=== PATIENT | female | born 1985 | race Caucasian/White ===

== ENCOUNTER 2017-09-15 16:08 | Outpatient (CLI) | payer MEDICAID ==
[~2017-09-15] VITALS: Ht 149.9 cm; Wt 51.7 kg
[2017-09-15 16:25] VITALS: BP 92/55; PULSE 72; RESP 19; Ht 149.9 cm; Wt 51.7 kg
[2017-09-15] MEDS ORDERED: PREN-93 PO (16:26)
[2017-09-15 16:33] LABS: URINE BLOOD (Dip) POC 3+ (NEGATIVE)
--- NOTE | 2017-09-15 18:09 | RADRPT ---
PROCEDURE: OB ultrasound for biophysical profile CLINICAL INDICATION: . TECHNIQUE: Multiple sonographic images of the pelvis were obtained. Transabdominal view of the gr avid uterus are available for review. The images were reviewed on a PACS workstation. COMPARISON: 06/26/2017 FINDINGS: breathing movement = 2/2 tone = 2/2 motion = 2/2 FAM = 2/2 FAM = 15.3 cm Single live intrauterine with cardiac activity. Heart rate equals 139 bpm. IMPRESSION: 1. Single viable intrauterine gestation. 2. Biophysical profile = 8/8. 3. FAM = 15.3 cm. RPTAT: QQ .Isaías Brown MD, Date Time Electronically viewed and signed by .Isaías Brown MD, on 09/15/2017 18:09 .Avelina/
--- NOTE | 2017-09-15 22:54 | RADRPT ---
PROCEDURE: Limited OB ultrasound CLINICAL INDICATION: Vaginal bleeding. TECHNIQUE: Limited sonographic evaluation of the gravid uterus was performed to assess the placent a. COMPARISON: 09/15/2017 FINDINGS: Single live intrauterine with a heart rate 131 beats per minute is present. Fetus is in b reech presentation. The placenta is anterior. anterior. There is no evidence for placental abruptio n or placenta previa. IMPRESSION: Anterior placenta. No evidence for placental previa or abruption. RPTAT: HMVK .Charles Lopez MD, Date Time Electronically viewed and signed by .Charles Lopez MD, on 09/15/2017 22:54 .K/
--- NOTE | 2017-09-16 01:26 | PN ---
Triage Information Date/Time Reason for visit: Vag spotting / bleeding Weeks of Gestation 32 weeks /Para Diabetes: none Hypertention: none Objective Vital Signs Date Time Temp Pulse Resp B/P Pulse Ox O2 Delivery O2 Flow Rate FiO2 09/15/17 16:25 98.5 72 19 92/55 99 Room Air Heart Rate: 130's Heart Rate Comments Category I Contractions: None Exam Cervix closed Results/Medications Results 24 hrs Laboratory Tests Test 09/15/17 16:45 Bedside Urine pH (LAB) 7.0 Bedside Urine Protein (LAB) 1+ H Bedside Urine Glucose (UA) Negative Bedside Urine Ketones (LAB) Negative Bedside Urine Blood 3+ H Bedside Urine Nitrite (LAB) Negative Bedside Urine Leukocyte Esterase (L Negative Imaging Results Placenta normal Cervical length normal Disposition: Discharge Assessment/Plan No sign of labor No active bleeding D/C home. KO AGUILAR MD Sep 16, 2017 01:26
--- NOTE | 2017-09-16 03:41 | TRIAGE ---
OB Triage Datetime Report Generated by CPN: 09/16/2017 03:41 Datetime: 09/16/2017 01:16 Stage of : OB Triage Datetime: 09/16/2017 01:15 Stage of : OB Triage Maternal Assessment Level of Consciousness: Fully Conscious Labor Evaluation Frequency: OCCASIONALLY Monitor Mode: External Duration (sec)2399: 60 Quality: Mild Resting Tone Stafford: Relaxed Heart Rate FHR Baseline Rate: 135 Monitor Mode: External US Variability: Moderate 6-25 bpm Accelerations: 15X15 Decelerations: None Comments: UNABLE ASSIGN CATEGORY DUE TO FHR MULTIPLE SKPING TRACING Pain Presence: None/Denies Vaginal Exam Membrane Status: Intact Datetime: 09/16/2017 00:20 Stage of : OB Triage Maternal Assessment Level of Consciousness: Fully Conscious Labor Evaluation Frequency: OCCASIONALLY Monitor Mode: External Duration (sec)2399: 60 Quality: Mild Resting Tone Stafford: Relaxed Heart Rate FHR Baseline Rate: 135 Monitor Mode: External US Variability: Moderate 6-25 bpm Accelerations: 15X15 Decelerations: None Category: UNABLE ASSIGN CATEGORY DUE TO PT LATERAL POSITION AND EFM UNABLE PICKING UP FHR. Pain Presence: None/Denies Vaginal Exam Membrane Status: Intact Datetime: 09/15/2017 23:20 Stage of : OB Triage Maternal Assessment Level of Consciousness: Fully Conscious Labor Evaluation Frequency: OCCASIONALLY Monitor Mode: External Duration (sec)2399: 60 Quality: Mild Resting Tone Stafford: Relaxed Heart Rate FHR Baseline Rate: 135 Monitor Mode: External US Variability: Moderate 6-25 bpm Accelerations: 15X15 Decelerations: None Category: Category I Pain Presence: None/Denies Vaginal Exam Membrane Status: Intact Datetime: 09/15/2017 23:17 Stage of : OB Triage Datetime: 09/15/2017 22:20 Stage of : OB Triage Maternal Assessment Level of Consciousness: Fully Conscious Labor Evaluation Frequency: NONE Monitor Mode: External Resting Tone Stafford: Relaxed Heart Rate FHR Baseline Rate: 135 Monitor Mode: External US Variability: Moderate 6-25 bpm Accelerations: 15X15 Decelerations: None Pain Presence: None/Denies Vaginal Exam Membrane Status: Intact Datetime: 09/15/2017 22:05 Stage of : OB Triage Datetime: 09/15/2017 21:20 Stage of : OB Triage Maternal Assessment Level of Consciousness: Fully Conscious Labor Evaluation Frequency: NONE Monitor Mode: External Resting Tone Stafford: Relaxed Heart Rate FHR Baseline Rate: 135 Monitor Mode: External US Variability: Moderate 6-25 bpm Accelerations: 15X15 Decelerations: None Pain Presence: None/Denies Vaginal Exam Membrane Status: Intact Datetime: 09/15/2017 21:02 Stage of : OB Triage Datetime: 09/15/2017 20:20 Stage of : OB Triage Maternal Assessment Level of Consciousness: Fully Conscious Labor Evaluation Frequency: NONE Monitor Mode: External Resting Tone Stafford: Relaxed Heart Rate FHR Baseline Rate: 135 Monitor Mode: External US Variability: Moderate 6-25 bpm Accelerations: 15X15 Decelerations: None Category: Category I Pain Presence: None/Denies Vaginal Exam Membrane Status: Intact Datetime: 09/15/2017 19:26 Stage of : OB Triage Maternal Assessment Level of Consciousness: Fully Conscious DTR's/Clonus: DTRs 1+ Headache: Denies Breath Sounds, Left: Clear and Equal Breath Sounds, Right: Clear and Equal Nausea/Vomiting: Denies RUQ Epigastric Pain: Denies Labor Evaluation Frequency: NONE Monitor Mode: External Resting Tone Stafford: Relaxed Heart Rate FHR Baseline Rate: 140 Monitor Mode: External US Variability: Moderate 6-25 bpm Accelerations: 15X15 Decelerations: None Category: Category I Pain Presence: None/Denies Vaginal Exam Membrane Status: Intact Datetime: 09/15/2017 18:56 Stage of : OB Triage Maternal Assessment Level of Consciousness: Fully Conscious DTR's/Clonus: DTRs 1+ Headache: Denies Breath Sounds, Left: Clear and Equal Breath Sounds, Right: Clear and Equal Nausea/Vomiting: Denies RUQ Epigastric Pain: Denies Labor Evaluation Frequency: NONE Monitor Mode: External Resting Tone Stafford: Relaxed Heart Rate FHR Baseline Rate: 145 Monitor Mode: External US Variability: Moderate 6-25 bpm Accelerations: 15X15 Decelerations: None Category: Category I Vaginal Exam Membrane Status: Intact Datetime: 09/15/2017 18:15 Maternal Assessment Level of Consciousness: Fully Conscious DTR's/Clonus: DTRs 1+ Headache: Denies Blurred Vision: No Respiratory Effort: Unlabored Breath Sounds, Left: Clear and Equal Breath Sounds, Right: Clear and Equal Nausea/Vomiting: Denies RUQ Epigastric Pain: Denies Facial Edema: None Labor Evaluation Frequency: NONE Monitor Mode: External Resting Tone Stafford: Relaxed Heart Rate FHR Baseline Rate: 145 Monitor Mode: External US Variability: Moderate 6-25 bpm Accelerations: 15X15 Decelerations: None Category: Category I Vaginal Exam Membrane Status: Intact Datetime: 09/15/2017 17:04 Stage of : OB Triage Maternal Assessment Level of Consciousness: Fully Conscious DTR's/Clonus: DTRs 1+ Headache: Denies Breath Sounds, Left: Clear and Equal Breath Sounds, Right: Clear and Equal Nausea/Vomiting: Denies RUQ Epigastric Pain: Denies Labor Evaluation Frequency: NONE Monitor Mode: External Resting Tone Stafford: Relaxed Heart Rate FHR Baseline Rate: 140 Monitor Mode: External US Variability: Moderate 6-25 bpm Accelerations: 15X15 Decelerations: None Category: Category I Pain Assessment Pain Scale: 0 Pain Presence: None/Denies Pain Type: N/A Pain Goal: 3 Vaginal Exam Membrane Status: Intact Datetime: 09/15/2017 16:33 Maternal Assessment Level of Consciousness: Fully Conscious DTR's/Clonus: DTRs 1+ Headache: Denies Blurred Vision: No Respiratory Effort: Unlabored Breath Sounds, Left: Clear and Equal Breath Sounds, Right: Clear and Equal Nausea/Vomiting: Denies RUQ Epigastric Pain: Denies Facial Edema: None Labor Evaluation Frequency: NONE Monitor Mode: External Resting Tone Stafford: Relaxed Heart Rate FHR Baseline Rate: 135 Monitor Mode: External US Variability: Moderate 6-25 bpm Accelerations: 10X10 Decelerations: None Category: Category I Pain Assessment Pain Scale: 0 Pain Presence: None/Denies Pain Type: N/A Pain Goal: 3 Vaginal Exam Membrane Status: Intact Datetime: 09/15/2017 16:22 EGA: 32.5 Datetime: 09/15/2017 16:15 Assessment Type: Triage Maternal Assessment Level of Consciousness: Fully Conscious DTR's/Clonus: DTRs 2+; No Clonus Headache: Denies Blurred Vision: No Respiratory Effort: Unlabored; Regular Rhythm; Equal Expansion Breath Sounds, Left: Clear and Equal Breath Sounds, Right: Clear and Equal Nausea/Vomiting: Denies RUQ Epigastric Pain: Denies Lower Extremities Edema: None Degree: None Upper Extremities Edema: None Degree: None Facial Edema: None Fall Risk Assessment History of Falling: (0) No Secondary Diagnosis: (0) No Ambulatory Aid: (0) Bedrest/Nurse Assist IV Therapy: (0) No Gait: (0) Normal/Bedrest/Immobile Mental Status: (0) Oriented to Own Ability Fall Score: 0 Fall Risk Score Definition: No Risk: No action required Datetime: 09/15/2017 16:01 Time of Arrival: 09/15/2017 16:01 Arrived By: Wheelchair Arrived From: Home Chief Complaint: PT CAME IN C/O BLEEDING SINCE YESTERDAY AFTERNOON. STATED THAT IT WAS BRIGHT RED YESTERDAY BUT TODAY IS A BIT TRAFFIC COURT MAGISTRATE LIKE A PINK COLOR WITH MUCOSE. DENIES ANY UC'S AT THIS TIME AND STATES + MOVEMENT Movement: Present Contractions: Denies/Absent Rupture of Membranes: Denies Vaginal Discharge: Denies Recent Sexual Intercouse: Denies Abdominal Trauma: Not Applicable Patient Complaints: Other Additional Patient Complaints: NONE Initial Plan: NST, PLACENTA LOCATION, CERVICAL LENGHT
== END 2017-09-16 01:35 | disposition home or self-care (01) ==
LOC: OBT 16:08 → L-D 16:08 → OBT 09-16 01:35
PROVIDERS: ATTEND Obstetrics & Gynecology
DX: O26.853 Spotting complicating pregnancy, third trimester (principal); Z3A.32 32 weeks gestation of pregnancy
CPT/HCPCS: 76815; 76817; 76818; 81003; 86850; 86900; 86901; Z7500; G0463

== ENCOUNTER 2017-10-30 06:52 | Inpatient (IN) | payer MEDICAID ==
[~2017-10-30] VITALS: Ht 147.3 cm; Wt 60.2 kg
[~2017-10-30 06:52] MED LIST: PREN-93 PO
[2017-10-30] MEDS ORDERED: LACTATED RINGER'S 1,000 ML IV SCH (07:22)
[2017-10-30] MEDS ORDERED: LIDOCAINE 1% (MPF) 30 ML INJ ONE (07:22)
[2017-10-30] MEDS ORDERED: OXYTOCIN 30 UNITS/LR 500 ML IV ONE (07:22)
[2017-10-30 07:25] VITALS: Ht 147.3 cm; Wt 60.2 kg
[2017-10-30 07:26] VITALS: BP 112/70; PULSE 62; RESP 16
--- NOTE | 2017-10-30 07:29 | TRIAGE ---
OB Triage Datetime Report Generated by CPN: 10/30/2017 07:28 Datetime: 10/30/2017 07:27 Assessment Type: Admission Assessment Time of Arrival: 10/30/2017 06:48 Arrived By: Ambulatory Arrived From: Home Chief Complaint: PT HERE C/O UC'S Movement: Present Contractions: Regular Time Contractions Began: 10/30/2017 02:00 Rupture of Membranes: Denies Vaginal Bleeding: None Vaginal Bleeding: None Vaginal Discharge: Denies Recent Sexual Intercouse: Denies Abdominal Trauma: Not Applicable Patient Complaints: Contractions; Cramping; Back Pain Time Provider Notified: 10/30/2017 07:20 Provider Notified[facility] Initial Plan: EFM/SVE Maternal Assessment Level of Consciousness: Fully Conscious DTR's/Clonus: DTRs 2+; No Clonus Headache: Denies Blurred Vision: No Respiratory Effort: Unlabored; Regular Rhythm; Equal Expansion Breath Sounds, Left: Clear and Equal Breath Sounds, Right: Clear and Equal Nausea/Vomiting: Denies RUQ Epigastric Pain: Denies Facial Edema: None Fall Risk Assessment History of Falling: (0) No Secondary Diagnosis: (0) No Ambulatory Aid: (0) Bedrest/Nurse Assist IV Therapy: (0) No Gait: (0) Normal/Bedrest/Immobile Mental Status: (0) Oriented to Own Ability Pain Assessment Pain Scale: 8 Pain Presence: Intermittent Pain Type: Contraction Pain Location: Abdomen Datetime: 10/30/2017 07:14 Vaginal Exam Dilatation (cms): 8.0 Effacement (%): 90 Station: -2 Exam By: [facility] Membrane Status: Bulging Vaginal Bleeding: Normal Show Cervix, Consistency: Soft Cervix, Position: Midposition Datetime: 10/30/2017 07:04 Labor Evaluation Monitor Mode: External Heart Rate Monitor Mode: External US Datetime: 09/15/2017 16:22 EGA: 32.5 Datetime: 09/15/2017 16:15 Fall Score: 0 Fall Risk Score Definition: No Risk: No action required Datetime: 09/15/2017 16:01 Time Provider Notified: 09/16/2017 16:24 Provider Notified: DR RABAGO
[2017-10-30] MEDS ORDERED: BUTORPHANOL 2 MG INJ IV PRN (07:30)
[2017-10-30] MEDS ORDERED: MISOPROSTOL 200 MCG TAB PR PRN ×2 (07:30→08:00)
[2017-10-30] MEDS ORDERED: LIDOCAINE 1% (MPF) 30 ML INJ INJ PRN (07:30)
[2017-10-30] MEDS ORDERED: OXYTOCIN 30 UNITS/LR 500 ML IV SCH ×2 (07:30)
[2017-10-30] MEDS ORDERED: IBUPROFEN 600 MG TAB PO PRN (07:30)
[2017-10-30] MEDS ORDERED: CARBOPROST 250 MCG INJ IM PRN ×2 (07:30→08:00)
[2017-10-30] MEDS ORDERED: AMPICILLIN 2 GM/NS (PMX) 100 ML IV ONE (07:30)
[2017-10-30] MEDS ORDERED: OXYTOCIN 30 UNITS/LR 500 ML IV PRN ×2 (07:30→08:00)
[2017-10-30] MEDS ORDERED: METHYLERGONOVINE 0.2 MG INJ IM PRN ×2 (07:30→08:00)
[2017-10-30 07:50] LABS: BASOPHILS % 0.4 % (0.0-2.0); EOSINOPHILS % 0.4 % (0.0-7.0); HEMATOCRIT 43.1 % (37.0-47.0); HEMOGLOBIN 15.4 g/dl (12.0-16.0); LYMPHOCYTES # 1.4 10^3/ul (0.8-2.9); MEAN CORPUSCULAR HEMOGLOBIN 33.3 pg (29.0-33.0); MEAN CORPUSCULAR HGB CONC 35.7 g/dl (32.0-37.0); MEAN CORPUSCULAR VOLUME 93.1 fl (82.0-101.0); MEAN PLATELET VOLUME 10.3 fl (7.4-10.4); MONOCYTE # 0.4 10^3/ul (0.3-0.9); MONOCYTES % 4.8 % (0.0-11.0); NEUTROPHIL # 6.6 10^3/ul (1.6-7.5); NEUTROPHILS % 77.7 % (39.0-77.0); PLATELET COUNT 241 10^3/UL (140-415); RED BLOOD COUNT 4.63 10^6/ul (4.20-5.40); RED CELL DISTRIBUTION WIDTH 12.8 % (11.5-14.5); WHITE BLOOD COUNT 8.5 10^3/ul (4.8-10.8)
--- NOTE | 2017-10-30 07:52 | HP ---
Date/Time of Note Date/Time of Note DATE: 10/30/17 TIME: 07:49 OB - History Hx of Present Free Text/Dictation Patient is a 32-year-old with IUP at 39 weeks and 1 day with care at [facility] presented in active labor. She was 89 cm with a bulging bag and 0 station. Her records were not available at the time of admission. She was admitted for delivery. Shortly after admission she had spontaneous rupture of membranes and clear fluid noted. She had urged the patient was transferred to labor and delivery : 5 Para: 4 Spontaneous : 0 Therapeutic : 0 Care: Other ( records not available) Other Concerns: Patient denies any constipation during her course. Records were not available at the time of admission Past Family/Social History * Past Medical, Surgical, Family and Obstetric Histories reviewed from chart. OB Admission Exam Vital Signs Vital Signs Vital Signs Date Time Temp Pulse Resp B/P Pulse Ox O2 Delivery O2 Flow Rate FiO2 10/30/17 07:26 97.8 62 16 112/70 Room Air Physical Exam HEENT: WNL Lungs: Clear Extremities: Normal Reflexes: Normal Cervical Dilatation: 9cm Effacement: 100% Station: -1 Amniotic Fluid: Clear Heart Rate: 130's Accelerations: Accelerations Present Decelerations: No Decelerations Contractions on Admission: < 5 Minutes Apart Intensity: Moderate OB Assessment/Plan Reason for admission: active labor Other Assessment: IUP at 39 weeks and 1 day Active labor Patient transferred to delivery room Anticipate RAKEL MCCARTHY MD Oct 30, 2017 07:52
--- NOTE | 2017-10-30 07:54 | LDN ---
Date/Time of Note Date/Time of Note DATE: 10/30/17 TIME: 07:52 Delivery Summary October 30, 2017 Placenta Delivered: Spontaneously Meconium: none Episiotomy: No Laceration repair: No perineal laceration. Patient had urge to push. After the delivery of the head due to ineffective maternal pushing effort And minimally difficulty in delivering of the shoulder. suprapubic pressure was applied with Rosalio maneuver Baby's shoulder delivered shortly in about less than 30 seconds after MicroBid maneuver and suprapubic pressure Anesthesia type: None Sponge & Needle done & correct: Yes All needle counts correct: Yes Any foreign bodies felt in the: No Problems: Infant Delivery Information Sex Infant Sex: female Apgars 1 Minute: 9 5 Minute: 9 Suctioning Nose & mouth suctioned at karma: Yes Delee suction performed: Yes Umbilical Cord Umbilical cord with: 3 Vessels Cord presentations: no nuchal cord Cord Blood was obtained: Yes RAKEL COTTO MD Oct 30, 2017 07:54
[2017-10-30] MEDS ORDERED: ZOLPIDEM 5 MG TAB PO PRN (08:00)
[2017-10-30] MEDS ORDERED: morphine 4 MG/ML VIAL IV PRN (08:00)
[2017-10-30] MEDS ORDERED: WITCH HAZEL/GLYCERIN PAD PR PRN (08:00)
[2017-10-30] MEDS ORDERED: DIPHENHYDRAMINE 25 MG CAP PO PRN (08:00)
[2017-10-30] MEDS ORDERED: ONDANSETRON 4 MG INJ IV PRN (08:00)
[2017-10-30 08:09] LABS: INR 0.87; PROTIME 11.9 Sec (11.9-14.9); PT RATIO 0.9
[2017-10-30 08:17] LABS: PARTIAL THROMBOPLASTIN TIME 28.1 Sec (25.0-35.0)
[2017-10-30] MEDS: LACTATED RINGER'S 1,000 ML IV* SCH ×2 (08:27→23:54)
[2017-10-30] MEDS: OXYTOCIN 30 UNITS/LR 500 ML IV SCH ×3 (08:49→20:30)
[2017-10-30] MEDS: SENNA/DOCUSATE NA (8.6MG/50MG) TAB PO SCH ×2 (09:00→21:03)
[2017-10-30] MEDS: HYDROCODONE/APAP (5/325) TAB PO PRN ×2 (09:48→16:55)
[2017-10-30 11:00] VITALS: BP 95/68; PULSE 70; RESP 18
[2017-10-30] MEDS ORDERED: AMPICILLIN 1 GM/NS (PMX) 50 ML IV SCH (11:30)
[2017-10-30] MEDS: IBUPROFEN 600 MG TAB PO SCH ×2 (12:34→18:21)
[2017-10-30 16:00] VITALS: BP 103/63; RESP 18
[2017-10-30 19:35] VITALS: BP 99/55; PULSE 72; RESP 18
[2017-10-31] VITALS: BP 98/54; PULSE 60; RESP 18
[2017-10-31] MEDS: IBUPROFEN 600 MG TAB PO SCH ×4 (00:08→18:07)
[2017-10-31] MEDS: OXYTOCIN 30 UNITS/LR 500 ML IV SCH ×6 (00:30→20:30)
[2017-10-31] MEDS: HYDROCODONE/APAP (5/325) TAB PO PRN ×3 (04:08→16:19)
[2017-10-31 04:25] VITALS: BP 109/70; PULSE 60; RESP 18
[2017-10-31] MEDS: LACTATED RINGER'S 1,000 ML IV* SCH ×3 (07:54→23:54)
[2017-10-31 08:17] VITALS: BP 115/67; PULSE 80; RESP 18
[2017-10-31] MEDS: SENNA/DOCUSATE NA (8.6MG/50MG) TAB PO SCH ×2 (09:17→22:16)
--- NOTE | 2017-10-31 09:43 | QN ---
Documentation Comment day 1 Afebrile Vital signs are stable Abdomen soft uterus firm lochia normal extremity normal, ambulation encouraged EILEEN LÓPEZ MD Oct 31, 2017 09:43
--- NOTE | 2017-10-31 09:59 | RADRPT ---
PROCEDURE: US Lower extremity Venous. CLINICAL INDICATION: Bilateral calf pain TECHNIQUE: Multiple sonographic images of the bilateral lower extremity deep venous system was obt ained utilizing grayscale, color-flow, compressive sonography and doppler imaging with augmentation. The images were reviewed on a PACS workstation. COMPARISON: None. FINDINGS: There is normal compressibility and flow within the bilateral common femoral, deep femoral, superfic ial femoral, posterior tibial, peroneal and popliteal veins. IMPRESSION: 1. No sonographic evidence for deep venous thrombosis within the bilateral lower extremities. RPTAT: AAPP Physician Liz Date Time Electronically viewed and signed by Physician Liz on 10/31/2017 09:59 WALT/
[2017-10-31 10:04] LABS: BASOPHILS % 0.3 % (0.0-2.0); EOSINOPHILS # 0.1 10^3/ul (0.0-0.5); EOSINOPHILS % 0.6 % (0.0-7.0); HEMATOCRIT 35.1 % (37.0-47.0); HEMOGLOBIN 12.4 g/dl (12.0-16.0); LYMPHOCYTES % 20.9 % (15.0-51.0); MEAN CORPUSCULAR HEMOGLOBIN 33.5 pg (29.0-33.0); MEAN CORPUSCULAR HGB CONC 35.3 g/dl (32.0-37.0); MEAN CORPUSCULAR VOLUME 94.9 fl (82.0-101.0); MEAN PLATELET VOLUME 10.3 fl (7.4-10.4); MONOCYTE # 0.5 10^3/ul (0.3-0.9); MONOCYTES % 5.4 % (0.0-11.0); NEUTROPHIL # 6.7 10^3/ul (1.6-7.5); NEUTROPHILS % 72.2 % (39.0-77.0); PLATELET COUNT 205 10^3/UL (140-415); WHITE BLOOD COUNT 9.3 10^3/ul (4.8-10.8)
[2017-10-31 16:00] VITALS: BP 118/73; PULSE 130; RESP 18
[2017-10-31] MEDS ORDERED: INFLUENZA VIRUS VACCINE 0.5 ML SYG IM* ONE (20:00)
[2017-10-31 20:30] VITALS: BP 100/57; PULSE 77; RESP 17
[2017-11-01] MEDS: IBUPROFEN 600 MG TAB PO SCH ×3 (00:21→11:41)
[2017-11-01] MEDS: OXYTOCIN 30 UNITS/LR 500 ML IV SCH ×2 (00:30→04:30)
[2017-11-01 04:00] VITALS: BP 103/61; PULSE 66; RESP 17
[2017-11-01] MEDS: LACTATED RINGER'S 1,000 ML IV* SCH (06:59)
[2017-11-01 07:50] VITALS: BP 96/56; PULSE 70; RESP 16
[2017-11-01] MEDS: SENNA/DOCUSATE NA (8.6MG/50MG) TAB PO SCH (09:07)
--- NOTE | 2017-11-01 12:50 | DS ---
Date/Time of Note Date/Time of Note DATE: 11/01/17 TIME: 12:50 Obstetrical Discharge Record Final Diagnosis Final Diagnosis: Term delivered Vaginal Delivery Obstetrical Delivery: Spontaneous Condition on Discharge Physical Assessment Voiding: Yes Bowel Movement: Yes Breast: Soft, non-tender, Filling Fundus: Firm Calf Tenderness: No Patient Condition: Stable KO AGUILAR MD Nov 01, 2017 12:50
[2017-11-01 16:00] VITALS: BP 103/61; PULSE 69; RESP 18
== END 2017-11-01 16:42 | disposition home or self-care (01) | DRG 775 ==
LOC: OBT 06:52 → L-D 06:53 → OBT 07:17 → PP1 10:38
PROVIDERS: ADMIT Obstetrics & Gynecology; ATTEND Obstetrics & Gynecology
PROC: 10E0XZZ Delivery of Products of Conception, External Approach (ICD-10-PCS; principal; 2017-10-30)
DX: O80 Encounter for full-term uncomplicated delivery (principal); Z37.0 Single live birth; Z3A.39 39 weeks gestation of pregnancy
CPT/HCPCS: 85025; 85610; 85730; 86592; 86900; 86901; 90686; 93970; G0463; J2210; J2590; J7120